=== PATIENT | female | born 1995 | race Caucasian/White ===

== ENCOUNTER 2017-01-15 21:40 | Outpatient (CLI) | payer MEDICAID ==
[~2017-01-15] VITALS: Ht 175.3 cm; Wt 100.0 kg
== END 2017-01-15 23:09 | disposition home or self-care (01) ==
LOC: LDOP 21:40
PROVIDERS: ATTEND Obstetrics & Gynecology Gynecology
DX: O42.92 Full-term premature rupture of membranes, unspecified as to length of time between rupture and onset of labor (principal); Z3A.39 39 weeks gestation of pregnancy
CPT/HCPCS: 59025; 89060; 99211; G0463; Q0114

== ENCOUNTER 2017-01-17 09:39 | Inpatient (IN) | payer MEDICAID ==
[~2017-01-17] VITALS: Ht 175.3 cm; Wt 104.5 kg
[2017-01-17] MEDS ORDERED: PREN1TAB60 PO (10:22)
[2017-01-17 10:25] VITALS: BP 128/75
[2017-01-17] MEDS ORDERED: OXYTOCIN 30U/ 0.9% NaCL 500ML 500 ML IV ONE (11:53)
[2017-01-17] MEDS: D5%-LACTATED RINGERS 1,000 ML IV SCH ×2 (11:53→19:53)
[2017-01-17] MEDS ORDERED: ONDANSETRON 2MG/ML, 2ML IVPush PRN (12:00)
[2017-01-17] MEDS ORDERED: FENTANYL PF 100 MCG/2ML IV PRN (12:00)
[2017-01-17] MEDS ORDERED: TERBUTALINE 1 MG/ML, 1ML IVPush PRN (12:00)
[2017-01-17] MEDS ORDERED: OXYTOCIN 30U/ 0.9% NaCL 500ML 500 ML ONE (12:17)
[2017-01-17] MEDS ORDERED: NEWBORN KIT ONE (12:22)
[2017-01-17 12:49] LABS: DIFF TOTAL CELLS COUNTED 100 CELL DIFF
[2017-01-17 12:52] LABS: VERIFY COUNTS? YES
[2017-01-17 12:53] LABS: ANISOCYTOSIS 1+; POLYCHROMASIA 1+
[2017-01-17] MEDS: FENTANYL PF 100 MCG/2ML IVPush PRN ×2 (12:53→14:32)
[2017-01-17] MEDS ORDERED: FENTANYL PF 100 MCG/2ML ONE (14:30)
[2017-01-17] MEDS: LACTATED RINGERS 1,000 ML IV SCH ×2 (14:54→17:44)
[2017-01-17] MEDS ORDERED: FENTANYL/BUPIV./NS/PF 250 ML EPIDCONT ONE ×2 (15:03→15:14)
[2017-01-17] MEDS ORDERED: LIDOCAINE/PF 1.5%-EPI 1:200K, 30ML ONE ×2 (15:03→15:14)
[2017-01-17] MEDS ORDERED: BUPIVACAINE/PF 0.25% ONE (15:04)
[2017-01-17] MEDS ORDERED: BUPIVACAINE 0.25% ONE (15:14)
[2017-01-17] MEDS ORDERED: LIDOCAINE 1%, 20ML ONE ×2 (15:14→19:35)
[2017-01-17] MEDS: OXYTOCIN 30U/ 0.9% NaCL 500ML 500 ML IV SCH (20:18)
[2017-01-17] MEDS ORDERED: OXYcodone/APAP 5/325MG TABLET PO PRN (20:30)
[2017-01-17] MEDS ORDERED: ONDANSETRON 2MG/ML, 2ML IV PRN (20:30)
[2017-01-17] MEDS ORDERED: DIPH,PERTUSS(ACELL),TET VAC/PF NC IM-VACC PRN (20:30)
[2017-01-17] MEDS ORDERED: METHYLERGONOVINE 0.2 MG/ML IM PRN (20:30)
[2017-01-17] MEDS ORDERED: CALCIUM CARBONATE 500 MG TAB.CHEW PO PRN (20:30)
[2017-01-17] MEDS ORDERED: RHOGAM FROM BLOOD BANK 1 NOTE EA IM/IV ONE (20:30)
[2017-01-17] MEDS ORDERED: OXYcodone IR 5MG TABLET PO PRN (20:30)
[2017-01-17] MEDS ORDERED: MEASLES,MUMPS&RUBELLA VACC/PF 0.5 ML SQ PRN (20:30)
[2017-01-17] MEDS ORDERED: MAGNESIUM HYDROXIDE 8%, 30ML UDC PO PRN (20:30)
[2017-01-17 22:00] VITALS: BP 109/67
[2017-01-17] MEDS: DOCUSATE 100 MG CAPSULE PO PRN (23:49)
[2017-01-17] MEDS: IBUPROFEN 600 MG TABLET PO PRN (23:49)
[2017-01-18 00:20] VITALS: BP 115/69
[2017-01-18] MEDS: FENTANYL PF 100 MCG/2ML IVPush PRN (03:10)
[2017-01-18 04:19] VITALS: BP 99/55
[2017-01-18 04:27] LABS: DIFF TOTAL CELLS COUNTED 100 CELL DIFF
[2017-01-18 04:29] LABS: VERIFY COUNTS? YES
[2017-01-18] MEDS ORDERED: FENTANYL/BUPIV./NS/PF 250 ML EPIDCONT SCH (06:00)
[2017-01-18] MEDS ORDERED: LACTATED RINGERS 1,000 ML IV SCH (06:00)
[2017-01-18] MEDS ORDERED: LACTATED RINGERS 1,000 ML IVBOLUS PRN (06:00)
[2017-01-18] MEDS: OXYTOCIN 30U/ 0.9% NaCL 500ML 500 ML IV SCH (06:18)
[2017-01-18] MEDS ORDERED: PRENATAL VIT/IRON/FA 1 EACH TABLET ONE (07:22)
[2017-01-18 07:30] VITALS: BP 110/66
[2017-01-18] MEDS: DOCUSATE 100 MG CAPSULE PO PRN ×2 (07:36→23:15)
[2017-01-18] MEDS: IBUPROFEN 600 MG TABLET PO PRN ×3 (07:36→23:14)
[2017-01-18] MEDS: PRENATAL VIT/IRON/FA 1 EACH TABLET PO SCH (07:36)
[2017-01-18] MEDS ORDERED: POLYETHYLENE GLYCOL 17 GM PACKET PO SCH (09:00)
[2017-01-18 12:10] VITALS: BP 126/64
[2017-01-18] MEDS ORDERED: IBUP-1222 PO (14:48)
[2017-01-18] MEDS ORDERED: OXYC-302 PO (14:49)
[2017-01-18] MEDS ORDERED: DOCU-30 PO (14:50)
[2017-01-18 16:09] VITALS: BP 116/73
[2017-01-18 21:00] VITALS: BP 128/87
[2017-01-19 08:00] VITALS: BP 106/69
[2017-01-19] MEDS: IBUPROFEN 600 MG TABLET PO PRN ×2 (08:21→18:15)
[2017-01-19] MEDS: PRENATAL VIT/IRON/FA 1 EACH TABLET PO SCH (08:21)
[2017-01-19] MEDS: DOCUSATE 100 MG CAPSULE PO PRN (08:21)
== END 2017-01-19 18:45 | disposition home or self-care (01) | DRG 775 ==
LOC: LDOP 09:39 → LDIP 12:05 → 2NW 21:40
PROVIDERS: ADMIT Obstetrics & Gynecology Gynecology; ATTEND Obstetrics & Gynecology Gynecology
PROC: 10E0XZZ Delivery of Products of Conception, External Approach (ICD-10-PCS; principal; 2017-01-17)
PROC: 0DQR0ZZ Repair Anal Sphincter, Open Approach (ICD-10-PCS; 2017-01-17)
PROC: 10907ZC Drainage of Amniotic Fluid, Therapeutic from Products of Conception, Via Natural or Artificial Opening (ICD-10-PCS; 2017-01-17)
PROC: 3E0R3CZ (ICD-10-PCS; 2017-01-17)
PROC: 00HU33Z Insertion of Infusion Device into Spinal Canal, Percutaneous Approach (ICD-10-PCS; 2017-01-17)
DX: O77.0 Labor and delivery complicated by meconium in amniotic fluid (principal); O70.20 Third degree perineal laceration during delivery, unspecified; Z3A.39 39 weeks gestation of pregnancy; Z37.0 Single live birth; Z23 Encounter for immunization; Z83.3 Family history of diabetes mellitus
CPT/HCPCS: 36415; 85025; 86850; 86900; J3010; J3490; J2590; J7120